=== PATIENT | male | born 1950 | race Caucasian/White ===

== ENCOUNTER → 2024-04-28 10:46 | Outpatient (REF) | payer OTHER, SELFPAY | LOC: RAD 10:46 | PROVIDERS: ATTENDING PHYSICIAN Family Medicine | DX: F03.90 Unspecified dementia, unspecified severity, without behavioral disturbance, psychotic disturbance, mood disturbance, and anxiety (principal); J44.9 Chronic obstructive pulmonary disease, unspecified; Z72.0 Tobacco use; Z00.01 Encounter for general adult medical examination with abnormal findings; R05.3 Chronic cough | CPT/HCPCS: 71046 ==

== ENCOUNTER 2024-12-04 11:49 | Emergency (ER) | payer OTHER, SELFPAY ==
[2024-12-04 11:51] VITALS: BP 108/63
[2024-12-04 12:08] VITALS: BMI 27.3
[2024-12-04 12:42] VITALS: BP 116/89
[2024-12-04 12:46] LABS: Hematocrit 46.4 % (39.0-52.0); Hemoglobin 15.8 g/dL (13.0-18.0); Mean Corp Hgb Conc. 34.1 g/dL (33.0-37.0); Mean Corpuscular Volume 89.9 fL (80.0-94.0); Nucleated Red Blood Cells % 0 % (-); Platelet Count 142 10^3/uL (130-400); Red Cell Dist. Width 13.9 % (11.5-14.5)
[2024-12-04] MEDS: TYLENOL 1000 MG PO (12:47)
[2024-12-04 12:55] LABS: Venous Blood Gas B.E. 0.8 mmol/L (-4 to +4); Venous Blood Gas O2 Sat % 84.1 %
[2024-12-04 13:00] VITALS: BP 112/83
--- NOTE | 2024-12-04 13:02 | ED.GENMED ---
History of Present Illness
General
Chief Complaint: Cough
Time Seen by Provider: 12/04/24 12:20
History of Present Illness
History of Present Illness:
74-year-old male with history of COPD presenting for cough and shortness of breath. Patient notes symptoms for the past 3 days with associated productive cough. No increased shortness of breath with exertion. Went to the doctor today, was sent to
the ER secondary to fever and hypoxia at 80%. He also notes some chest pain. Denies any lower extremity swelling. Denies any abdominal pain. He is not on any oxygen at home. He is a daily smoker. Denies additional acute medical complaints
Past History
Past History
ED Past Medical History: Other (Chronic cough)
ED Past Surgical History: Appendectomy, Bowel resection and Other (Herniorrhaphy, cataract surgery)
Social History
Tobacco: Smoker
Alcohol: None
Drug: None
Personal:
Living: with family
Employment: Employed
Family History
Family History: Hypertension; Negative Early CAD
Phy Exam
Physical Exam
Physical Exam:
General: Well-appearing, no clinical signs of dehydration, nontoxic and in no acute distress
HEENT: protecting airway
Neck: appears supple
CV: Normal heart rate, regular rhythm
Resp: Rhonchi and rales bilaterally with some expiratory wheezing. Mild increased work of breathing
Abd: Soft and non-distended, no tenderness to palpation
Extremities: No deformities, no swelling, no erythema, pulses and sensation intact
Neuro: alert, no focal neurologic deficit
: deferred
Rectal: deferred
Psych: Normal affect
Skin: Intact
Sepsis
Sepsis Screening
Sepsis Assessment: Sepsis
Sepsis Screen
Sepsis Screen: Sepsis
Date: 12/04/24
Time: 14:42
Course
Orders/Labs/Results
Orders:
Orders
12/04/24 12:10
CXR2 [CR Chest - 2 Views ] Urgent
Comment:
Reason For Exam: cough,fever
12/04/24 12:26
Electrocardiogram (*1) Urgent
Reason for Study: Other
Other Reason for Exam: sepsis
EKG- Treatment ONCE
Acetaminophen [Tylenol] 1,000 mg PO NOW STA
12/04/24 12:30
Comprehensive Metabolic Panel Urgent
12/04/24 12:35
Complete Blood Count/With Diff Urgent
Lactic Acid Q4H
Comment: CANCEL 2nd LACTIC ACID IF 1st LACTIC ACID IS LESS THAN 2
NT-proBNP Urgent
Troponin I Urgent
Comment: ADD
Blood Culture Q30M
TONG Source: Blood/Venous
Specimen Description:
12/04/24 12:36
Add On- LAB Urgent
Tests Added?: troponin
12/04/24 12:43
COVID-19 Antigen Urgent
Source: Nasal Swab
Venous Blood Gas Urgent
%Oxygen/Room Air: 21
Blood Culture Q30M
TONG Source: Blood/Venous
Specimen Description:
Influenza A+B Rapid Molecular Urgent
TONG Source: Nasal Swab
Specimen Description:
12/04/24 12:56
Ipratropium/Albuterol Sulfate [Duoneb] 3 ml INH R NOW STA
12/04/24 12:57
0.9% Sodium Chloride 1000 ml [Nss] 1,000 ml IV BOLUS
Cefepime HCl [Maxipime] 2,000 mg IV NOW STA
12/04/24 12:58
Vancomycin [Vancocin] 2,000 mg 0.9% Sodium Chloride 500 ml [Nss] 500 ml IV NOW
12/04/24 13:15
Sterile Water [Sterile Water For Injection] 10 ml .ROUTE .STK-MED ONE
Abnormal Lab Results
12/04/24 12/04/24 12/04/24
12:30 12:35 12:43
WBC 14.3 H 10^3/uL
(4.8-10.8)
MPV 11.3 H fL
(7.4-10.4)
Abs Immat Gran (auto) 0.1 H 10^3/uL
(0-0.05)
Absolute Neuts (auto) 10.5 H 10^3/uL
(1.4-6.5)
Absolute Monos (auto) 1.6 H 10^3/uL
(0.1-0.6)
Lymphocytes % 14.6 L %
(20.5-51.1)
Monocytes % 10.9 H %
(1.7-9.3)
VBG HCO3 27.1 H mmol/L
(22-27)
Sodium 131 L mmol/L
(135-145)
Chloride 97 L mmol/L
(98-107)
Glucose 114 H mg/dl
(70-99)
12/04/24 12:35
12/04/24 12:35
Vital Signs
Initial and Last Documented VS:
Initial Vital Signs
Temp Pulse Resp BP Pulse Ox
102.1 F H 129 24 108/63 88
12/04/24 11:51 12/04/24 11:51 12/04/24 11:51 12/04/24 11:51 12/04/24 11:51
Last Documented Vital Signs
Temp Pulse Resp BP Pulse Ox
99.8 F 108 20 94/80 91
12/04/24 13:59 12/04/24 14:30 12/04/24 13:00 12/04/24 14:00 12/04/24 14:15
MDM/Problems Addressed
MDM/Problems Addressed:
74-year-old male with history of COPD presenting for cough, fever, shortness of breath. Vital signs on arrival significant for fever, tachycardia, tachypnea.
Patient arrives on supplemental O2 with improvement of saturations from prior facility. Mild increased work of breathing with rhonchorous breath sounds bilaterally, wheezing. Concern for pneumonia and possible sepsis, meeting SIRS criteria. Plan
for laboratory analysis, lactic acid, blood cultures, chest x-ray imaging, viral swabs. Will start patient on DuoNebs and IV fluids. Will also assembler flexible leads Tylenol for fever.
13:10 - Chest x-ray is consistent with multifocal pneumonia. Patient with leukocytosis. Lactic acid within normal limits and blood pressure within normal limits without concern for severe sepsis or septic shock. Starting broad-spectrum
antibiotics. Plan for admission
*Pulse Oximetry
SaO2: 93
Nasal Cannula flow liters per minute: 2
Oxygen Mode of Delivery: Room air
Patient hypoxic: yes
*EKG
Interpreted by ED Provider?: Yes
EKG Intrepretation Date: 12/04/24
EKG Intrepretation Time: 13:11
Interpretation: normal
Comparison EKG: no changes (09/20/21)
Heart Rate: 118
Rate: tachycardiac
Rhythm: sinus
[place]: normal axis
Interval: normal interval
QRS Pattern: normal QRS
Ischemia: no ischemia
*Critical Care Note
Total Time (30-74mins, 75-104mins- exclusive of procedures): Not Applicable
ED Attending Note
-
Portions of this chart may have been created with voice recognition software.� Occasional wrong word or��sound alike� substitutions may have occurred due to the inherent limitations of voice recognition software.
Discharge Plan
Departure
Patient Disposition: Admit
Date of Disposition: 12/04/24
Time of Disposition: 13:53
Presentation/result/management discussed w/ accepting MD/DO: Hospitalist
Patient with high blood pressure during this ER visit?: No
Condition: Fair
Discharge Problem:
Multifocal pneumonia, Sepsis
Prescriptions:
No Action
albuterol sulfate [Ventolin HFA] 1 PUFF HFA aerosol inhaler
2 puff inhalation R Q4HPRN PRN (Reason: WHEEZING)
Referrals:
Trung Duong, DO [Family Provider, Family Practice]
Interventions
Interventions:
*Risk Screen - Suicide Last Done: 12/04/24 11:51
*General Assessment Last Done: 12/04/24 11:51
*Neglect/Abuse Screening Last Done: 12/04/24 13:35
*ED- Fall Risk Assessment Last Done: 12/04/24 12:09
*ED COVID-19 Vaccine History Last Done: 12/04/24 12:09
ED- Pulmonary Assessment Last Done: 12/04/24 13:32
Discharge Date and Time
Print Language: CITIZEN OF [place]
[2024-12-04 13:06] LABS: COVID-19 Antigen Negative (Negative)
[2024-12-04 13:11] LABS: Troponin I 0.014 ng/ml
[2024-12-04] MEDS: NSS 1000 IV (13:11)
[2024-12-04 13:22] LABS: ALT (SGPT) 14 U/L (0-50); AST (SGOT) 23 U/L (17-59); Albumin 4.7 g/dl (3.5-5.0); Alkaline Phosphatase 73 U/L (38-126); Blood Urea Nitrogen 14 mg/dl (9-20); Calcium 8.9 mg/dl (8.4-10.2); Carbon Dioxide 25 mmol/L (22-30); Chloride 97 mmol/L (98-107); Estimated Creatinine Clearance 94 ml/min; Glucose 114 mg/dl (70-99); Potassium 4.2 mmol/L (3.5-5.1); Sodium 131 mmol/L (135-145); Total Protein 7.7 g/dl (6.3-8.2); eGFR > 60.00
[2024-12-04] MEDS: DUONEB 3 ML INH (13:22)
[2024-12-04] MEDS: MAXIPIME 2000 MG IV (13:23)
[2024-12-04] MEDS: VANCOCIN 540 MG IV (13:45)
[2024-12-04 14:00] VITALS: BP 94/80
--- NOTE | 2024-12-04 14:55 | HPS.HSE ---
Addendum entered and electronically signed by Colby Card MD 12/05/24 11:37:
New H & P and new admission orders are placed following readmissions on the same day after AMA.
An hr or so ago he left AMA but brought home back
Clinically stable
Addendum entered and electronically signed by Colby Card MD 12/04/24 19:05:
An hr or so ago he left AMA but brought adrienne back
Clinically and orders are the same
- cont. the admission orders
Addendum entered and electronically signed by Colby Card MD 12/04/24 16:10:
Due to element of COPD flare and acute hypoxemic RI
- to start PO Prednisone short course and taper every 48hrs
- Home O2 eval before DC
Original Note:
Family Physician
-
Family Physician: Trung Duong
Chief Complaint
-
cough, fever, shortness of breath
History of Present Illness
HPI
74M partial Kyr[place] speaker Current smoker, HX Dementia COPD/Emphysema seen at ER
-for cough, fever, shortness of breath for the past 3 days with associated productive cough.
- No increased shortness of breath with exertion.
- Went to the doctor today, was sent to the ER secondary to fever and hypoxia at 80%.
- some chest pain.
- not on any oxygen at home.
ROS
Denies any lower extremity swelling.
Denies any abdominal pain. He is a daily smoker.
Medical History
Past Medical History
Past Medical History: Reports COPD (chronic cough, XR suggest mild / moderate bilateral upper lobe centrilobular emphysema. ) and Other (Nicotine use disorder - smoke daily )
Past Surgical History: Reports Appendectomy, Bowel Resection and Other (Herniorrhaphy, cataract surgery))
Social History
Tobacco: Smoker
Alcohol: None
Personal:
Living: With Family
Family History
Family History: Not pertinent
Allergies / Home Medications
Allergies reflects when Allergies were last updated in [facility].
Home Medications with original date entered in [facility]
Allergy/Medication List:
Allergies
Allergy/AdvReac Type Severity Reaction Status Date / Time
No Known Allergies Allergy Verified 12/04/24 11:51
Home Medications
albuterol sulfate 90 mcg/actuation aerosol inhaler (Ventolin HFA) 2 puff inhalation R Q4HPRN PRN WHEEZING 12/04/24
Review of Systems
-
Constitutional: Reports No Symptoms
EENT: Reports No Symptoms
Respiratory: Reports See HPI
Cardiac: Reports No Symptoms
Abdomen/GI: Reports No Symptoms
: Reports No Symptoms
Musculoskeletal: Reports No Symptoms
Skin: Reports No Symptoms
Neurological: Reports No Symptoms
Endocrine: Reports No Symptoms
Hematologic/Lymphatic: Reports No Symptoms
Psych: Reports No Symptoms
Physical Exam
Vital Signs
Vital Signs
Temp Pulse Resp BP Pulse Ox
99.8 F 108 20 94/80 91
12/04/24 13:59 12/04/24 14:30 12/04/24 13:00 12/04/24 14:00 12/04/24 14:15
Physical Exam
General: Well Developed, Well Nourished and No Apparent Distress
HEENT: NormoCephalic, Moist mucous membranes and Atraumatic
Respiratory: Wheezes (expiratory wheezing both lungs ), Rales (both lung ) and Rhonchi (both lungs )
Cardiac: S1/S2, Regular Rhythm and Tachycardia; No Murmur or Rub
GI: Soft, Non Tender, Non Distended and Normal Bowel Sounds; No Organomegaly
Rectal: Deferred by Provider
Musculoskeletal: No Clubbing, No Cyanosis and No Edema
Skin: No Rash
Neuro: Nonfocal/grossly intact
Laboratory Results
-
12/04/24 12:35
12/04/24 12:35
Laboratory Results
Lactic Acid Cancelled 12/04/24 16:30
Total Bilirubin Cancelled 12/04/24 12:35
AST Cancelled 12/04/24 12:35
ALT Cancelled 12/04/24 12:35
Alkaline Phosphatase Cancelled 12/04/24 12:35
Troponin I 0.014 ng/ml 12/04/24 12:35
Data Reviewed
-
Diagnostic Radiology: Report Reviewed by me
Lab Data: Labs Reviewed by me
Impression/Plan
-
Relevant data
WCC 14.3
Na 131
Cr 0.7 eGFR > 60
LA 1.2
TPN 0.014
proBNP 221
BCx sent
CXR
1. Large amount of ground-glass opacity in the basilar segments of the lower lobes of both lungs, right middle lobe, and lingula which has markedly increased since 04/28/2024. Diagnostic possibilities are (1) acute bilateral infectious pneumonia
or (2) progressive combined emphysema and interstitial pulmonary fibrosis.
2. Mild to moderate bilateral upper lobe centrilobular emphysema.
NO PRIOR hospitalist admission:
ASSESSMENT & PLAN
Pending Rx reconciliation
Sepsis ( HR >90. WCC > 10) due to PNA
Multifocal PNA - presumed CAP
Asso. acute Hypoxia requiring NC 2 L O2
XR also suggest mild / moderate bilateral upper lobe centrilobular emphysema.
- BCx sent
- First dose of IV Vanco and IV CFP at ER
- check MRSA screen till then hold further IV vancomycin
- cont IV CFP
- Goal Pox > 93 % - titrate NC O2
Associated Bronchitis and bronchospasm
XR also suggest mild / moderate bilateral upper lobe centrilobular emphysema.
- DuoNeb qid and PRN
- Hold off steroids for now
HX partial Kyrgyz speaker
HX Dementia with loss of secondary Kyr[place]z language proficiency
- calm and cooperative now
- at risk for irritation and agitation
Nicotine use disorder
- will start Nicotine patch to prevent irritation and agitation
DVT Px: LMWH
Full code
IP MS
--- NOTE | 2024-12-04 16:21 | PHANOTE ---
MED REC NOTE- WAITING FOR TO COME BACK TO ROOM, PATIENT VERY CONFUSED AT THIS TIME
== END 2024-12-04 17:23 | disposition still patient (30) ==
LOC: EMR 11:49
PROVIDERS: ATTENDING PHYSICIAN Internal Medicine; EMERGENCY PHYSICIAN Student in an Organized Health Care Education/Training Program; FAMILY PHYSICIAN Family Medicine
DX: A41.9 Sepsis, unspecified organism (principal); J18.9 Pneumonia, unspecified organism; J44.0 Chronic obstructive pulmonary disease with (acute) lower respiratory infection; F17.200 Nicotine dependence, unspecified, uncomplicated; F03.90 Unspecified dementia, unspecified severity, without behavioral disturbance, psychotic disturbance, mood disturbance, and anxiety; Z53.29 Procedure and treatment not carried out because of patient's decision for other reasons
CPT/HCPCS: 99284; 96374; 96375; 94640; 96361; 71046; 80053; 81003; 81015; 82805; 83605; 83880; 84484; 85025; 85027; 87040; 87070; 87502; 87811; 93005

== ENCOUNTER 2024-12-04 22:59 | Inpatient (IN) | payer OTHER, SELFPAY ==
[2024-12-04] VITALS (7 sets, daily range): BP systolic 93–136; BP diastolic 56–82; BMI 27.0
--- NOTE | 2024-12-04 18:55 | ED.GENMED ---
History of Present Illness
General
Chief Complaint: Breathing Problem
Source: patient and family
Time Seen by Provider: 12/04/24 18:53
History of Present Illness
History of Present Illness:
Note:
CHIEF COMPLAINT(S)
Cough, fever, and shortness of breath.
HISTORY OF PRESENT ILLNESS
The patient, male, presents with a history of cough and fever and was diagnosed with pneumonia earlier in the day. He was admitted to the hospital but subsequently left to smoke. He has since returned for admission. Upon re-evaluation, the patient
was found to be wheezing bilaterally and exhibited ronchi bilaterally and hypoxia, requiring four liters of supplemental oxygen to maintain an oxygen saturation of 94%. The patient has a regular yet tachycardic heart rate. There is a significant
history of long-standing smoking.
ADDITIONAL HISTORY OBTAINED FROM SOURCES OTHER THAN THE PATIENT
According to a family member at the bedside, the patient did not smoke much today.
SOCIAL HISTORY
The patient has a significant long-standing history of smoking. The family mentions they have considered nicotine replacement therapy such as patches or gum.
PHYSICAL EXAM
General: Alert, no acute distress.
Skin: Warm, dry.
Head: Normocephalic, atraumatic.
Neck: Supple, trachea midline.
Ears, Nose, Mouth, and Throat: Oral mucosa moist.
Cardiovascular: Regular and tachycardic.
Respiratory: Wheezing and ronchi bilaterally; oxygen saturation at 94% on four liters of supplemental oxygen.
Gastrointestinal: Abdomen nondistended.
Back: Normal range of motion, normal alignment.
Musculoskeletal: Normal range of motion, normal strength.
Neurological: Alert and oriented to person, place, time, and situation, no focal neurological deficit observed.
Psychiatric: Cooperative, appropriate mood & affect.
PROBLEM LIST
Acute:
- Pneumonia
- Hypoxia
- Smoking history contributing to respiratory distress
PLAN
1. Admit to hospital for continued treatment of pneumonia.
2. Initiate antibiotics as per hospital protocol for pneumonia management.
3. Administer breathing treatment to address wheezing.
4. Continue supplemental oxygen to maintain saturations above 94%.
5. Consider nicotine replacement therapy with a patch to aid in smoking cessation.
DIFFERENTIAL DIAGNOSIS
The Differential Diagnosis includes, in no particular order and is not limited to:
1. Bacterial pneumonia
2. Acute exacerbation of chronic obstructive pulmonary disease (COPD)
3. Viral upper respiratory infection
4. Asthma exacerbation
5. Heart failure with pulmonary edema
6. Pulmonary embolism
7. Lung cancer
8. Tuberculosis
9. Interstitial lung disease
10. Acute bronchitis
Disposition:
SUMMARY OF ENCOUNTER
The patient presented to the emergency department with a cough, fever, and shortness of breath, later diagnosed with pneumonia. Initially admitted, the patient left to smoke but returned for further evaluation and management. Upon re-evaluation, the
patient exhibited bilateral wheezing, ronchi, and hypoxia requiring supplemental oxygen to maintain oxygen saturation. A significant smoking history was noted. Antibiotics and nicotine patches were provided, alongside breathing treatments.
DISPOSITION
Admit
ASSESSMENT
The patient presents with pneumonia, likely exacerbated by a significant smoking history, leading to respiratory distress and hypoxia.
EMERGENCY TREATMENTS ADMINISTERED
The patient received antibiotics as per the hospital protocol and a breathing treatment with DuoNeb (albuterol and ipratropium bromide). Nicotine patches were also provided to aid in smoking cessation.
PLAN
1. Continue hospitalization for pneumonia management.
2. Continue prescribed antibiotics.
3. Administer breathing treatments and maintain supplemental oxygen to ensure oxygen saturation remains above 94%.
4. Encourage smoking cessation with the aid of nicotine replacement therapy.
5. Consider further pulmonology consultation if needed.
INDEPENDENT REVIEW OF LABS AND INTERPRETATION OF TESTS
My independent review of CBC indicates leukocytosis with white blood cell count at 14,000, and lactic acid levels were normal at 1.2.
MEDICATION RECONCILIATION
1. Administered antibiotics during the emergency department visit.
2. Provided nicotine patch for smoking cessation.
3. Administered DuoNeb for respiratory relief.
MEDICAL DECISION MAKING
- Complexity of Data Reviewed: Chronic conditions affecting care include a significant smoking history. Differential diagnosis includes bacterial pneumonia, acute exacerbation of COPD, viral upper respiratory infection, asthma exacerbation, heart
failure with pulmonary edema, pulmonary embolism, lung cancer, tuberculosis, interstitial lung disease, and acute bronchitis.
- Data:
Category 1
Clinical information was obtained from an independent historian, as a family member provided additional information on the patient�s smoking habits today.
Category 3
Discussion of management with the hospitalist ensured continuity of care and appropriate orders for antibiotics and nicotine replacement therapy remained in place.
- Risk:
Prescription medication was provided, and therapy required monitoring. Decisions regarding hospitalization were made due to the risk of complications from pneumonia and the patient�s chronic smoking history.
DIAGNOSIS
Pneumonia, unspecified organism (ICD-10: J18.9)
Nicotine dependence, cigarettes, uncomplicated (ICD-10: F17.210)
Past History
Past History
ED Past Medical History: Other (Chronic cough)
ED Past Surgical History: Appendectomy, Bowel resection and Other (Herniorrhaphy, cataract surgery)
Social History
Tobacco: Smoker
Alcohol: None
Drug: None
Personal:
Living: with family
Employment: Employed
Family History
Family History: Hypertension; Negative Early CAD
Phy Exam
Physical Exam
Physical Exam:
.
Scores
Heart Failure Risk
Heart Failure Risk Score: Not Applicable
Sepsis
Sepsis Screening
Sepsis Assessment: Sepsis
Sepsis Screen
Sepsis Screen: Sepsis
Date: 12/04/24
Time: 23:52
Course
Orders/Labs/Results
Orders:
Orders
12/04/24 19:08
Admit/Transfer Patient As Directed
Co-Sign Provider:
Level of Care: Inpatient admission
Assign to:: Medical/Surgical
Physician / Group: [email or web address]
Diagnosis: PNA, COPD flare, sepsis , hypoxia
Reason for Hospitalization: PNA, COPD flare, sepsis , hypoxia
Expected length of stay greater than two midnights?: Yes
ELOS- Estimated Length of Stay in days: 3
I certify the patient meets the requirements for IP care: Yes
12/04/24 19:10
Code Status As Directed
Resuscitation Status: Full Code
12/04/24 19:21
Ipratropium/Albuterol Sulfate [Duoneb] 3 ml INH R NOW STA
12/04/24 19:32
Acetaminophen [Tylenol] 1,000 mg PO NOW STA
12/04/24 23:04
Blood Culture Q30M
TONG Source: Blood/Venous
Specimen Description:
Comment: IF NOT OBTAINED IN ED
Cefepime HCl [Maxipime] 2,000 mg IV Q8H
Ipratropium/Albuterol Sulfate [Duoneb] 3 ml INH R Q4HPRN PRN
Ipratropium/Albuterol Sulfate [Duoneb] 3 ml INH R QID
12/04/24 23:04
Urinalysis Reflex To Culture Urgent
Date Specimen was Collected: 12/05/24
Time Specimen was Collected: 17:21
Activity As Directed
Activity Level: With Assistance
Vital Signs As Directed
Frequency: Per unit guidelines
Weight As Directed
Frequency: Daily
DX Deep Vein Thrombosis Video Routine
12/04/24 23:34
Blood Culture Q30M
TONG Source: Blood/Venous
Specimen Description:
Comment: IF NOT OBTAINED IN ED
12/05/24 05:32
Complete Blood Count/No Diff IN AM
Comprehensive Metabolic Panel IN AM
12/05/24 Breakfast
Regular
At Your Request: Limited Participation
12/05/24 08:00
Nicotine [Nicoderm Transdermal] 14 mg TRANSDERM DAILY
Prednisone [Deltasone] 40 mg PO DAILY
12/05/24 18:00
Enoxaparin Sodium [Lovenox] 40 mg SC QPM
12/04/24 18:59
12/04/24 18:59
Vital Signs
Initial and Last Documented VS:
Initial Vital Signs
Temp Pulse Resp BP Pulse Ox
101.3 F H 132 24 136/73 83
12/04/24 18:47 12/04/24 18:47 12/04/24 18:47 12/04/24 18:47 12/04/24 18:47
Last Documented Vital Signs
Temp Pulse Resp BP Pulse Ox
98.5 F 90 18 103/55 99
12/05/24 23:14 12/05/24 23:14 12/05/24 23:14 12/05/24 23:14 12/05/24 23:14
*Pulse Oximetry
SaO2: 83
Oxygen Mode of Delivery: Room air
Patient hypoxic: yes
*Critical Care Note
Total Time (30-74mins, 75-104mins- exclusive of procedures): 30 minutes
ED Attending Note
-
Portions of this chart may have been created with voice recognition software.� Occasional wrong word or��sound alike� substitutions may have occurred due to the inherent limitations of voice recognition software.
Discharge Plan
Departure
Patient Disposition: Admit
Date of Disposition: 12/04/24
Time of Disposition: 19:18
Admit to: Telemetry
Presentation/result/management discussed w/ accepting MD/DO: Hospitalist
Discharge Problem:
Sepsis, Multifocal pneumonia
Interventions
Interventions:
*Risk Screen - Suicide Last Done: 12/04/24 23:16
*General Assessment Last Done: 12/04/24 18:47
*Neglect/Abuse Screening Last Done: 12/04/24 19:35
*ED- Fall Risk Assessment Last Done: 12/04/24 19:50
*Nursing Disposition Last Done: 12/04/24 22:18
ED- Cardiac Assessment Last Done: 12/04/24 19:36
ED- Pulmonary Assessment Last Done: 12/04/24 19:36
Discharge Date and Time
Discharge Date/Time: 12/04/24 22:18
--- NOTE | 2024-12-04 19:14 | HPS.HSE ---
Family Physician
-
Family Physician: Jg Hollis
Chief Complaint
-
cough, fever, shortness of breath
History of Present Illness
74M HX dementia Current smoker, HX COPD/Emphysema seen at ER
-for cough, fever, shortness of breath for the past 3 days with associated productive cough.
- No increased shortness of breath with exertion.
- Went to the doctor today, was sent to the ER secondary to fever and hypoxia at 80%.
- some chest pain.
- not on any oxygen at home.
ROS
Denies any lower extremity swelling.
Denies any abdominal pain. He is a daily smoker.
Chest x-ray is consistent with multifocal pneumonia
leukocytosis. Lactic acid within normal limits
Medical History
Past Medical History
Past Medical History: Reports COPD (chronic cough, XR suggest mild / moderate bilateral upper lobe centrilobular emphysema. ) and Other (Nicotine use disorder - smoke daily )
Past Surgical History: Reports Appendectomy, Bowel Resection and Other (Herniorrhaphy, cataract surgery))
Social History
Tobacco: Smoker
Alcohol: None
Personal:
Living: With Family
Family History
Family History: Not pertinent
Allergies / Home Medications
Allergies reflects when Allergies were last updated in [facility].
Home Medications with original date entered in [facility]
Allergy/Medication List:
Allergies
Allergy/AdvReac Type Severity Reaction Status Date / Time
No Known Allergies Allergy Verified 12/04/24 11:51
Home Medications
albuterol sulfate 90 mcg/actuation aerosol inhaler (Ventolin HFA) 2 puff inhalation R Q4HPRN PRN WHEEZING 12/04/24
Review of Systems
-
Constitutional: Reports No Symptoms
EENT: Reports No Symptoms
Respiratory: Reports See HPI
Cardiac: Reports No Symptoms
Abdomen/GI: Reports No Symptoms
: Reports No Symptoms
Musculoskeletal: Reports No Symptoms
Skin: Reports No Symptoms
Neurological: Reports No Symptoms
Endocrine: Reports No Symptoms
Hematologic/Lymphatic: Reports No Symptoms
Psych: Reports No Symptoms
Physical Exam
Vital Signs
Vital Signs
Temp Pulse Resp BP Pulse Ox
101.3 F H 132 24 136/73 83
12/04/24 18:47 12/04/24 18:47 12/04/24 18:47 12/04/24 18:47 12/04/24 18:55
Physical Exam
General: Well Developed, Well Nourished and No Apparent Distress
HEENT: NormoCephalic, Moist mucous membranes and Atraumatic
Respiratory: Wheezes (expiratory wheezing both lungs ), Rales (both lung ) and Rhonchi (both lungs )
Cardiac: S1/S2, Regular Rhythm and Tachycardia; No Murmur or Rub
GI: Soft, Non Tender, Non Distended and Normal Bowel Sounds; No Organomegaly
Rectal: Deferred by Provider
Musculoskeletal: No Clubbing, No Cyanosis and No Edema
Skin: No Rash
Neuro: Nonfocal/grossly intact
Laboratory Results
-
Relevant data
WCC 14.3
Na 131
Cr 0.7 eGFR > 60
LA 1.2
TPN 0.014
proBNP 221
BCx sent
Data Reviewed
-
Diagnostic Radiology: Report Reviewed by me
Lab Data: Labs Reviewed by me
Impression/Plan
-
Relevant VS
Vital Signs
Temp Pulse Resp BP Pulse Ox
101.3 F H 132 24 136/73 83
12/04/24 18:47 12/04/24 18:47 12/04/24 18:47 12/04/24 18:47 12/04/24 18:55
Relevant data
WCC 14.3
Na 131
Cr 0.7 eGFR > 60
LA 1.2
TPN 0.014
proBNP 221
BCx sent
CXR
1. Large amount of ground-glass opacity in the basilar segments of the lower lobes of both lungs, right middle lobe, and lingula which has markedly increased since 04/28/2024. Diagnostic possibilities are (1) acute bilateral infectious pneumonia
or (2) progressive combined emphysema and interstitial pulmonary fibrosis.
2. Mild to moderate bilateral upper lobe centrilobular emphysema.
NO PRIOR hospitalist admission:
ASSESSMENT & PLAN
Sepsis ( HR >90. WCC > 10) due to PNA
Multifocal PNA - presumed CAP
Asso. acute Hypoxia requiring NC 2 L O2
XR also suggest mild / moderate bilateral upper lobe centrilobular emphysema.
- BCx sent
- First dose of IV Vanco and IV CFP at ER
- check MRSA screen till then hold further IV vancomycin
- cont IV CFP 2gm q8h
- Goal Pox > 93 % - titrate NC O2
Associated Bronchitis and bronchospasm
XR also suggest mild / moderate bilateral upper lobe centrilobular emphysema.
- DuoNeb qid and PRN
- Due to element of COPD flare and acute hypoxemic RI
- to start PO Prednisone short course and taper every 48hrs
- Home O2 eval before DC
HX partial French speaker
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
- calm and cooperative now
- at risk for irritation and agitation
Nicotine use disorder
- will start Nicotine patch to prevent irritation and agitation
DVT Px: LMWH
Full code
IP MS
[2024-12-04] MEDS: TYLENOL 1000 MG PO (19:36)
[2024-12-04] MEDS: DUONEB 3 ML INH ×2 (19:36→23:54)
[2024-12-05] MEDS: MAXIPIME 2000 MG IV ×4 (00:20→23:09)
[2024-12-05] MEDS: NICODERM TRANSDERMAL TRANSDERM (00:21)
[2024-12-05] MEDS: LR 500 IV (00:21)
[2024-12-05] MEDS: STERILE WATER FOR INJECTION 10 ML IV ×4 (00:27→23:09)
[2024-12-05] MEDS: NICODERM TRANSDERMAL 14 MG TRANSDERM ×2 (00:38→08:58)
[2024-12-05 01:30] VITALS: BP 97/64
[2024-12-05 05:19] VITALS: BP 93/60
[2024-12-05 05:28] VITALS: BP 98/65
[2024-12-05 06:00] VITALS: BMI 26.8
[2024-12-05] MEDS: LR 1000 IV (06:08)
--- NOTE | 2024-12-05 06:27 | W.PN.UPDATE ---
Update Note
Progress Note Update
pt with softer bps (90s/50s). asymptomatic. will add one bag ivf.
[2024-12-05 06:36] LABS: Hematocrit 39.6 % (39.0-52.0); Hemoglobin 13.5 g/dL (13.0-18.0); Mean Corp Hgb Conc. 34.1 g/dL (33.0-37.0); Mean Corpuscular Volume 90.6 fL (80.0-94.0); Platelet Count 130 10^3/uL (130-400); Red Cell Dist. Width 13.9 % (11.5-14.5)
[2024-12-05 06:50] LABS: ALT (SGPT) 11 U/L (0-50); AST (SGOT) 19 U/L (17-59); Albumin 3.6 g/dl (3.5-5.0); Alkaline Phosphatase 62 U/L (38-126); Blood Urea Nitrogen 13 mg/dl (9-20); Calcium 8.4 mg/dl (8.4-10.2); Carbon Dioxide 24 mmol/L (22-30); Chloride 105 mmol/L (98-107); Estimated Creatinine Clearance 110 ml/min; Glucose 99 mg/dl (70-99); Potassium 3.8 mmol/L (3.5-5.1); Sodium 136 mmol/L (135-145); Total Protein 6.1 g/dl (6.3-8.2); eGFR > 60.00
[2024-12-05 08:00] VITALS: BP 99/59
[2024-12-05] MEDS: DUONEB 3 ML INH ×4 (08:14→20:13)
[2024-12-05] MEDS: DELTASONE 40 MG PO (08:58)
--- NOTE | 2024-12-05 12:57 | CM ---
Initial assessment completed with with patient and S-I-L in room. Patient and live in a 2 story condo with B/B on 2nd and 1/2 bath on 1st, 5 steps to enter. 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
Patient does drive. No DME or in-home services. No HC-POA. PCP is Dr. Jg Hollis and Pharmacy is [facility] on [address] Discharge POC: TBD. Home with no needs vs HH RN.
--- NOTE | 2024-12-05 14:02 | W.PN.HOSP.TC ---
Today's Communication/Plan
-
Assessment / Plan
Assessment / Plan
General: No Apparent Distress, Comfortable and Conversant
HEENT: NormoCephalic, Moist mucous membranes, Atraumatic
Respiratory: Mild diffuse expiratory wheezing, Non Labored Respirations
Cardiac: S1/S2 and Regular Rhythm; No Rub or Gallop
GI: Soft, Non Tender, Non Distended and Normal Bowel Sounds
Musculoskeletal: No Edema, no deformity
Skin: Warm and dry
: NO Kumar
Neuro: Awake, Alert, Nonfocal/grossly intact
Psych: Calm and cooperative
Mr. Rivera is a 74-year-old [place] speaking male with a medical history of dementia, COPD with emphysema (not on home oxygen) and is a current smoker who presented with productive cough, shortness of breath, and fevers. He left yesterday AGAINST
MEDICAL ADVICE soon after and returned soon after for reevaluation on admission. He has a leukocytosis and remains intermittently febrile. He has been borderline hypotensive since presentation. Chest x-ray shows bilateral pneumonia. He has been
started on antibiotics with cefepime, IV fluids, and prednisone. He is requiring 3 L of supplemental oxygen. He has been admitted for further evaluation and management of sepsis secondary to pulmonary infection with COPD exacerbation.
Sepsis secondary to pneumonia:
- Given a dose of vancomycin and cefepime in the ED, continue antibiotics with cefepime, follow-up MRSA swab
- Continue resuscitative fluids currently with LR at 100 cc/h
- Follow-up cultures
- Supplemental oxygen as needed
COPD with acute exacerbation:
- With acute hypoxic respiratory failure, not on home oxygen, desaturated to the low 80s on room air, saturating appropriately on 3 L, titrate as able and assess for home oxygen needs prior to discharge
- Continue scheduled nebulizers with additional as needed
- Has been on 40 mg p.o. daily
- Encourage smoking cessation, nicotine patch provided
DVT prophylaxis: Lovenox
CODE STATUS: Full code
Total time spent on today's encounter was 35 minutes
Anticipated Discharge: 24 - 48 hours
Subjective/Interval History
-
Date of Service: December 05, 2024
Patient was seen and examined at bedside this morning. His was also present. He is breathing comfortably currently on 3 L via nasal cannula.
Objective Data
-
Labs:
Laboratory Results
12/05/24
05:32
WBC 13.2 H
Hgb 13.5
Hct 39.6
Plt Count 130
Sodium 136
Potassium 3.8
Chloride 105
Carbon Dioxide 24
BUN 13
Creatinine 0.6 L
Glucose 99
Calcium 8.4
Total Bilirubin 0.8
AST 19
ALT 11
Alkaline Phosphatase 62
Vital Signs:
Vital Signs
Temp Pulse Resp BP Pulse Ox
98.4 F 73 16 99/59 95
12/05/24 08:00 12/05/24 11:20 12/05/24 11:20 12/05/24 08:00 12/05/24 11:20
Review of Systems
-
History Source: Patient
All other systems: Reviewed and negative
Physical Exam
-
General: No Apparent Distress
[2024-12-05 16:00] VITALS: BP 93/56
[2024-12-05] MEDS: LOVENOX 40 MG SC (17:18)
[2024-12-05 17:52] LABS: Urine Character Clear (Clear)
[2024-12-05 18:05] LABS: Urine Squamous Cell 0-2 /LPF (Few)
[2024-12-05 18:06] LABS: Urine Red Blood Cell 0-2 /HPF (0-2); Urine White Cell 0-2 /HPF (0-5)
[2024-12-05] MEDS: REMOVE NICOTINE PATCH 1 PATCH REMOVE (21:07)
[2024-12-05 23:14] VITALS: BP 103/55
[2024-12-06 05:51] VITALS: BMI 27.2
[2024-12-06 06:38] LABS: Hematocrit 37.6 % (39.0-52.0); Hemoglobin 12.6 g/dL (13.0-18.0); Mean Corp Hgb Conc. 33.5 g/dL (33.0-37.0); Mean Corpuscular Volume 91.3 fL (80.0-94.0); Nucleated Red Blood Cells % 0 % (-); Platelet Count 130 10^3/uL (130-400); Red Cell Dist. Width 13.6 % (11.5-14.5)
[2024-12-06 06:47] LABS: Blood Urea Nitrogen 27 mg/dl (9-20); Calcium 8.5 mg/dl (8.4-10.2); Carbon Dioxide 27 mmol/L (22-30); Chloride 107 mmol/L (98-107); Estimated Creatinine Clearance 110 ml/min; Glucose 113 mg/dl (70-99); Potassium 3.3 mmol/L (3.5-5.1); Sodium 138 mmol/L (135-145); eGFR > 60.00
[2024-12-06 07:00] VITALS: BP 117/66
--- NOTE | 2024-12-06 07:43 | W.PN.HOSP.TC ---
Today's Communication/Plan
-
Continue to wean oxygen.
Pulse ox on exertion in am.
PT consult.
Assessment / Plan
Assessment / Plan
Impression:
Patient is a 74-year-old French speaking male with a medical history of dementia, COPD with emphysema (not on home oxygen) and is a current smoker who presented with productive cough, shortness of breath, and fevers. He left yesterday AGAINST
MEDICAL ADVICE and returned soon after for reevaluation on admission. He has a leukocytosis and remains intermittently febrile. He has been borderline hypotensive since presentation. Chest x-ray shows bilateral pneumonia. He has been started on
antibiotics with cefepime, IV fluids, and prednisone. He is requiring 3 L of supplemental oxygen. He has been admitted for further evaluation and management of sepsis secondary to pulmonary infection with COPD exacerbation.
Assessment/plan:
Severe sepsis with acute organ dysfunction secondary to pneumonia:
Acute organ dysfunction in form of acute respiratory failure
- Chest x-ray on admission shows:
1. Large amount of ground-glass opacity in the basilar segments of the lower lobes of both lungs, right middle lobe, and lingula which has markedly increased since 04/28/2024. Diagnostic possibilities are (1) acute bilateral infectious pneumonia
or (2) progressive combined emphysema and interstitial pulmonary fibrosis.
2. Mild to moderate bilateral upper lobe centrilobular emphysema
Given a dose of vancomycin and cefepime in the ED, continue antibiotics with cefepime, negative MRSA swab
Negative both Streptococcus pneumoniae antigen and Legionella antigen
Negative blood culture
Negative influenza and COVID
Acute respiratory failure secondary to pneumonia.
Continue oxygen with weaning protocol.
Consider sending home with oxygen
. Pulse ox on exertion in am.
COPD with acute exacerbation:
- With acute hypoxic respiratory failure, not on home oxygen, desaturated to the low 80s on room air, saturating appropriately on 3 L, titrate as able and assess for home oxygen needs prior to discharge
- Continue scheduled nebulizers with additional as needed
- Has been on 40 mg p.o. daily
- Encourage smoking cessation, nicotine patch provided.
Currently smoker
Continue nicotine patches.
Hypokalemia.
Will replace and continue to monitor.
CODE STATUS: Full code
DVT prophylaxis: Lovenox
Diet: Regular diet
Family communication: Discussed with at bedside.
Total time spent on today's encounter was 65 minutes which included time spent in counseling the patient/family regarding diagnosis and treatment plan as listed above, goals of care, and symptom management. Case was discussed with nursing staff,
specialists, and care coordinators/case management. All labs and imaging personally reviewed by me. Remainder the time spent in detailed review of previous records, lab data, imaging, and other medical provider documentation.
Anticipated Discharge: Within 24 hours
Subjective/Interval History
-
Date of Service: December 06, 2024
Patient seen and examined at bedside, denies any chest pain , patient still having wheezing but overall shortness of breath Improved, no abdominal pain, no nausea, no vomiting, no diarrhea or constipation.
Discussed with at bedside.
Objective Data
-
Labs:
Laboratory Results
12/06/24
05:35
WBC 10.3
Hgb 12.6 L
Hct 37.6 L
Plt Count 130
Sodium 138
Potassium 3.3 L
Chloride 107
Carbon Dioxide 27
BUN 27 H
Creatinine 0.6 L
Glucose 113 H
Calcium 8.5
Vital Signs:
Vital Signs
Temp Pulse Resp BP Pulse Ox
98.5 F 90 18 103/55 95
12/05/24 23:14 12/05/24 23:14 12/05/24 23:14 12/05/24 23:14 12/06/24 02:19
I&O
12/05/24 12/06/24 12/07/24
06:59 06:59 06:59
Intake Total 980 / 980
Balance 980 / 980
Physical Exam
-
General: Well Developed, Well Nourished, No Apparent Distress and Comfortable
HEENT: Normocephalic, Atraumatic, Moist Mucous Membranes, No Ptosis, PERRLA and Nose Appears Normal
Respiratory: Wheezes, Rales, Rhonchi, Crackles and Non Labored Respirations
Cardiac: Regular Rhythm and S1/S2
Breast: Deferred by me
GI: Soft, Nontender, Nondistended and Normal Bowel Sounds
Genito-urinary: No Costovertebral Tender
Musculoskeletal: No Clubbing, No Cyanosis and No Edema
Skin: Warm
Neuro: Awake, Alert, Oriented, AO x 3 and No Motor Deficits
Psych: Calm
Data Reviewed
-
Diagnostic Radiology: Image personally visualized and interpreted and Report Reviewed by me
CT Scan: Image personally visualized and interpreted and Report Reviewed by me
Ultrasound: Image personally visualized and interpreted and Report Reviewed by me
MRI: Image personally visualized and interpreted and Report Reviewed by me
Medical Tests (Nuc Med, Echo etc): Image personally visualized and interpreted and Report Reviewed by me
Labs: Labs Reviewed by me
Old Records: Reviewed
[2024-12-06] MEDS: DUONEB 3 ML INH ×4 (07:54→20:00)
[2024-12-06] MEDS: NICODERM TRANSDERMAL 14 MG TRANSDERM (08:24)
[2024-12-06] MEDS: STERILE WATER FOR INJECTION 10 ML IV ×3 (08:24→22:23)
[2024-12-06] MEDS: DELTASONE 40 MG PO (08:24)
[2024-12-06] MEDS: MAXIPIME 2000 MG IV ×3 (08:24→22:23)
[2024-12-06] MEDS: KLOR-CON 20 MEQ PO (08:25)
--- NOTE | 2024-12-06 10:24 | CM ---
Patient seen at bedside with
cont on oxygen - CM to watch for needs
tt hospitalist for PT order
PLAN: home, Await PT eval, watch for oxygen needs
[2024-12-06 15:00] VITALS: BP 121/74
[2024-12-06 15:50] VITALS: BP 114/74; PULSE 95; O2SAT 88
[2024-12-06] MEDS: LOVENOX 40 MG SC (18:07)
[2024-12-06] MEDS: REMOVE NICOTINE PATCH 1 PATCH REMOVE (21:12)
--- NOTE | 2024-12-06 22:06 | W.PN.UPDATE ---
Update Note
Progress Note Update
pt getting increasingly agitated walking the halls stating he wanted to leave- with pt as he has a hx of dementia- to help redirect him. He is still requiring 2L NC for maintain a SPO2 of 94% and is LEWIS. The patient's getting flustered
with calming the patient mentioned wanting to leave AMA- On the floor to speak with pt and - they are ok with trying medications to sleep & calm the patient for the evening. Note indicates he could possibly be d/c'd tomorrow- discussed this as
well. Melatonin and Ativan ordered.�
[2024-12-06] MEDS: ATIVAN 0.25 MG PO (22:24)
[2024-12-06 23:15] VITALS: BP 124/70
--- NOTE | 2024-12-07 02:37 | PTCARENOTE ---
early in the evening pt started being agitated walking down the shook with a bag wanting to go home, was very frustrated and asked if he could be going home today given his agitation and constant asking to leave. Patient hard to redirect in the
room, he was SOB on exertion, requiring Oxygen but refusing to wear while walking. with talking to him and staff redirecting he finally agreed to go back in the room, oxygen applied and kept on while asleep. SCHOOL CROSSING GUARD Lilibeth Roper made aware and came
to evaluate patient.
--- NOTE | 2024-12-07 04:46 | DOWNTIME ---
There was a [employer] Engine Lathe Set Up Operator Downtime on 12/07/2024 from 0100 to 12/07/2024 at 0220. Downtime documentation of patient's care, including medication administrations, has been reconciled in the electronic record per guidelines. Refer to the
patient's paper chart under the miscellaneous tab to see printed paper medication records and downtime forms.
[2024-12-07 05:22] VITALS: BMI 27.3
[2024-12-07] MEDS: STERILE WATER FOR INJECTION 10 ML IV (06:14)
[2024-12-07] MEDS: MAXIPIME 2000 MG IV (06:14)
[2024-12-07 07:00] VITALS: BP 122/78
[2024-12-07] MEDS: DUONEB 3 ML INH (07:50)
[2024-12-07 07:53] LABS: Hematocrit 39.3 % (39.0-52.0); Hemoglobin 13.1 g/dL (13.0-18.0); Mean Corp Hgb Conc. 33.3 g/dL (33.0-37.0); Mean Corpuscular Volume 91.8 fL (80.0-94.0); Platelet Count 142 10^3/uL (130-400); Red Cell Dist. Width 13.7 % (11.5-14.5)
[2024-12-07 08:09] LABS: Blood Urea Nitrogen 20 mg/dl (9-20); Calcium 8.6 mg/dl (8.4-10.2); Carbon Dioxide 28 mmol/L (22-30); Chloride 105 mmol/L (98-107); Estimated Creatinine Clearance 110 ml/min; Glucose 89 mg/dl (70-99); Potassium 3.7 mmol/L (3.5-5.1); Sodium 137 mmol/L (135-145); eGFR > 60.00
[2024-12-07] MEDS: NICODERM TRANSDERMAL 14 MG TRANSDERM (08:26)
[2024-12-07] MEDS: DELTASONE 40 MG PO (08:26)
[2024-12-07 08:35] VITALS: O2SAT 93; O2SAT 95
[2024-12-07 11:00] VITALS: BP 120/72
--- NOTE | 2024-12-07 11:24 | W.PN.HOSP.TC ---
Today's Communication/Plan
-
Discharge home today
Assessment / Plan
Assessment / Plan
Impression:
Patient is a 74-year-old Kazakh speaking male with a medical history of dementia, COPD with emphysema (not on home oxygen) and is a current smoker who presented with productive cough, shortness of breath, and fevers. He left yesterday AGAINST
MEDICAL ADVICE and returned soon after for reevaluation on admission. He has a leukocytosis and remains intermittently febrile. He has been borderline hypotensive since presentation. Chest x-ray shows bilateral pneumonia. He has been started on
antibiotics with cefepime, IV fluids, and prednisone. He is requiring 3 L of supplemental oxygen. He has been admitted for further evaluation and management of sepsis secondary to pulmonary infection with COPD exacerbation.
Overall status post improved, patient passed ambulatory pulse ox.
Will be discharged home on prednisone tapering, Ceftin.
Will be discharged on nebulizer, follow-up with pulmonology.
Will be discharged on nicotine patches.
Outpatient physical therapy.
Assessment/plan:
Severe sepsis with acute organ dysfunction secondary to pneumonia:
Acute organ dysfunction in form of acute respiratory failure
- Chest x-ray on admission shows:
1. Large amount of ground-glass opacity in the basilar segments of the lower lobes of both lungs, right middle lobe, and lingula which has markedly increased since 04/28/2024. Diagnostic possibilities are (1) acute bilateral infectious pneumonia
or (2) progressive combined emphysema and interstitial pulmonary fibrosis.
2. Mild to moderate bilateral upper lobe centrilobular emphysema
Given a dose of vancomycin and cefepime in the ED, continue antibiotics with cefepime, negative MRSA swab
Negative both Streptococcus pneumoniae antigen and Legionella antigen
Negative blood culture
Negative influenza and COVID
09/07
Improved.
Will be discharged home.
Acute respiratory failure secondary to pneumonia.
Continue oxygen with weaning protocol.
Consider sending home with oxygen.
09/07
passed Pulse ox on exertion
Will be discharged home.
COPD with acute exacerbation:
- With acute hypoxic respiratory failure, not on home oxygen, desaturated to the low 80s on room air, saturating appropriately on 3 L, titrate as able and assess for home oxygen needs prior to discharge
- Continue scheduled nebulizers with additional as needed
- Has been on 40 mg p.o. daily
- Encourage smoking cessation, nicotine patch provided.
Currently smoker
Continue nicotine patches.
Hypokalemia.
Will replace and continue to monitor.
CODE STATUS: Full code
DVT prophylaxis: Lovenox
Diet: Regular diet
Family communication: Discussed with at bedside.
Total time spent on today's encounter was 65 minutes which included time spent in counseling the patient/family regarding diagnosis and treatment plan as listed above, goals of care, and symptom management. Case was discussed with nursing staff,
specialists, and care coordinators/case management. All labs and imaging personally reviewed by me. Remainder the time spent in detailed review of previous records, lab data, imaging, and other medical provider documentation.
Anticipated Discharge: Today
Subjective/Interval History
-
Date of Service: December 07, 2024
Patient seen and examined at bedside, denies any chest pain or shortness of breath, no abdominal pain, no nausea, no vomiting, no diarrhea or constipation.
Objective Data
-
Labs:
Laboratory Results
12/07/24
06:58
WBC 10.2
Hgb 13.1
Hct 39.3
Plt Count 142
Sodium 137
Potassium 3.7
Chloride 105
Carbon Dioxide 28
BUN 20
Creatinine 0.6 L
Glucose 89
Calcium 8.6
Vital Signs:
Vital Signs
Temp Pulse Resp BP Pulse Ox
98.1 F 78 16 122/78 93
12/07/24 07:00 12/07/24 07:53 12/07/24 07:53 12/07/24 07:00 12/07/24 08:35
I&O
12/06/24 12/07/24 12/08/24
06:59 06:59 06:59
Intake Total 980 / 980 720 / 720
Balance 980 / 980 720 / 720
Physical Exam
-
General: Well Developed, Well Nourished, No Apparent Distress and Comfortable
HEENT: Normocephalic, Atraumatic, Moist Mucous Membranes, No Ptosis, PERRLA and Nose Appears Normal
Respiratory: Rales, Rhonchi and Crackles
Cardiac: Regular Rhythm and S1/S2
Breast: Deferred by me
GI: Soft, Nontender, Nondistended and Normal Bowel Sounds
Genito-urinary: No Costovertebral Tender
Musculoskeletal: No Clubbing, No Cyanosis and No Edema
Skin: Warm
Neuro: Awake, Alert, Oriented, AO x 3 and No Motor Deficits
Psych: Calm
Data Reviewed
-
Diagnostic Radiology: Image personally visualized and interpreted and Report Reviewed by me
CT Scan: Image personally visualized and interpreted and Report Reviewed by me
Ultrasound: Image personally visualized and interpreted and Report Reviewed by me
MRI: Image personally visualized and interpreted and Report Reviewed by me
Medical Tests (Nuc Med, Echo etc): Image personally visualized and interpreted and Report Reviewed by me
Labs: Labs Reviewed by me
Old Records: Reviewed
--- NOTE | 2024-12-07 11:27 | W.DCSUMMARY ---
Discharge Summary
Discharge Data
Date of Admission: 12/04/24
Date of Discharge: 12/07/24
-
Pending Results: No
Hospital Course
Hospital course
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 He left yesterday AGAINST
MEDICAL ADVICE and returned soon after for reevaluation on admission. He has a leukocytosis and remains intermittently febrile. He has been borderline hypotensive since presentation. Chest x-ray shows bilateral pneumonia. He has been started on
antibiotics with cefepime, IV fluids, and prednisone. He is requiring 3 L of supplemental oxygen. He has been admitted for further evaluation and management of sepsis secondary to pulmonary infection with COPD exacerbation.
Overall status post improved, patient passed ambulatory pulse ox.
Will be discharged home on prednisone tapering, Ceftin.
Will be discharged on nebulizer, follow-up with pulmonology.
Will be discharged on nicotine patches.
Outpatient physical therapy.
During hospitalization patient was treated from the following
Severe sepsis with acute organ dysfunction secondary to pneumonia:
Acute organ dysfunction in form of acute respiratory failure
- Chest x-ray on admission shows:
1. Large amount of ground-glass opacity in the basilar segments of the lower lobes of both lungs, right middle lobe, and lingula which has markedly increased since 04/28/2024. Diagnostic possibilities are (1) acute bilateral infectious pneumonia
or (2) progressive combined emphysema and interstitial pulmonary fibrosis.
2. Mild to moderate bilateral upper lobe centrilobular emphysema
Given a dose of vancomycin and cefepime in the ED, continue antibiotics with cefepime, negative MRSA swab
Negative both Streptococcus pneumoniae antigen and Legionella antigen
Negative blood culture
Negative influenza and COVID
09/07
Improved.
Will be discharged home.
Acute respiratory failure secondary to pneumonia.
Continue oxygen with weaning protocol.
Consider sending home with oxygen.
09/07
passed Pulse ox on exertion
Will be discharged home.
COPD with acute exacerbation:
- With acute hypoxic respiratory failure, not on home oxygen, desaturated to the low 80s on room air, saturating appropriately on 3 L, titrate as able and assess for home oxygen needs prior to discharge
- Continue scheduled nebulizers with additional as needed
- Has been on 40 mg p.o. daily
- Encourage smoking cessation, nicotine patch provided.
Currently smoker
Continue nicotine patches.
Hypokalemia.
Will replace and continue to monitor.
CODE STATUS: Full code
DVT prophylaxis: Lovenox
Diet: Regular diet
Family communication: Discussed with at bedside.
Total time spent on today's encounter was 40 minutes which included time spent in counseling the patient/family regarding diagnosis and treatment plan as listed above, goals of care, and symptom management. Case was discussed with nursing staff,
specialists, and care coordinators/case management. All labs and imaging personally reviewed by me. Remainder the time spent in detailed review of previous records, lab data, imaging, and other medical provider documentation.
Anticipated Discharge: Today
Discharge Plan
-
Patient Disposition: Home (Routine Discharge)
Discharge Diagnosis/Procedures: Severe sepsis with acute organ dysfunction secondary to pneumonia:
Acute respiratory failure
COPD with acute exacerbation:
Diet: As tolerated
Activity: As tolerated
Instructions: Quitting smoking for adults, Exacerbation of COPD (DC)
Referrals:
Anni Ring, [Active, Pulmonary Medicine] - in one to two weeks
Jg Hollis MD [Family Provider, [facility]]
Prescriptions:
New
(DME) outpatient physical therapy
See Rx Instructions .Route .MEDSUPPLY Qty: 1 0RF
Rx Instructions:
3 times weekly
Diagnosis: Ambulatory Dysfunction.
prednisone 20 mg Tablet
10 mg PO DIRECTED Qty: 30 0RF
Rx Instructions:
take 40 mg for 3 days then 30 mg for 3 days then 20 mg for 3 days then 10 mg for 3 days then stop.
ipratropium-albuterol 0.5 mg-3 mg(2.5 mg base)/3 mL Solution For Nebulization
3 ml inhalation R Q4HPRN PRN (Reason: wheeze) Qty: 180 0RF
nicotine 14 mg/24 hr Patch 24 Hour
14 mg transdermal DAILY Qty: 28 0RF
(DME) nebulizer and compressor Device
See Rx Instructions .Route Qty: 1 0RF
Rx Instructions:
As directed
cefuroxime axetil 500 mg tablet
500 mg PO BID 10 Days Qty: 20 0RF
Continued
albuterol sulfate [Ventolin HFA] 1 PUFF HFA aerosol inhaler
2 puff inhalation R Q4HPRN PRN (Reason: WHEEZING) Qty: 8.5 0RF
Discharge Orders:
Discharge Patient (As Directed); Ordered 12/07/24
Ordered By: Dewayne Marion
Discharge Date and Time
Print Language: FAROESE
--- NOTE | 2024-12-07 12:03 | CM ---
Patient seen at bedside with patient on . Patient for discharge home with outpatient script for PT/OT follow up. Patient completed iMM and signed form placed on chart. Patient eager for discharge home today. CM will continue to follow
for discharge planning needs.
Plan; home with outpatient pt/ot follow up
== END 2024-12-07 12:01 | disposition home or self-care (01) | DRG 871 ==
LOC: 2 NORTH 22:59
PROVIDERS: Internal Medicine; ADMITTING PHYSICIAN Internal Medicine; ATTENDING PHYSICIAN General Practice; EMERGENCY PHYSICIAN Emergency Medicine; FAMILY PHYSICIAN Family Medicine
DX: A41.9 Sepsis, unspecified organism (principal); J18.9 Pneumonia, unspecified organism; J96.01 Acute respiratory failure with hypoxia; F17.210 Nicotine dependence, cigarettes, uncomplicated; F03.90 Unspecified dementia, unspecified severity, without behavioral disturbance, psychotic disturbance, mood disturbance, and anxiety; J84.10 Pulmonary fibrosis, unspecified; I95.9 Hypotension, unspecified; R65.20 Severe sepsis without septic shock; J43.2 Centrilobular emphysema; E87.6 Hypokalemia; Z90.49 Acquired absence of other specified parts of digestive tract
CPT/HCPCS: 71046; 80048; 80053; 81003; 81015; 82805; 83605; 83880; 84484; 85025; 85027; 87040; 87070; 87205; 87449; 87502; 87811; 87899; 93005; 94640; 97162; 97530; 99291

== ENCOUNTER → 2025-01-07 13:13 | Outpatient (REF) | payer OTHER, SELFPAY | LOC: HWRAD 13:13 | PROVIDERS: ATTENDING PHYSICIAN Internal Medicine Critical Care Medicine; FAMILY PHYSICIAN Family Medicine | DX: J18.9 Pneumonia, unspecified organism (principal); J84.9 Interstitial pulmonary disease, unspecified | CPT/HCPCS: 71250 ==

== ENCOUNTER → 2025-02-09 07:54 | Outpatient (REF) | payer OTHER, SELFPAY ==
[2025-02-09 07:49] LABS: Glucose 104 mg/dl (70-99)
== END ==
LOC: PET 07:54
PROVIDERS: ATTENDING PHYSICIAN Internal Medicine Critical Care Medicine
DX: Z01.812 Encounter for preprocedural laboratory examination (principal); R91.1 Solitary pulmonary nodule
CPT/HCPCS: 36415; 78815; 82947; A9552

== ENCOUNTER → 2025-02-24 09:09 | Outpatient (REF) | payer OTHER, SELFPAY | LOC: HWRCS 09:09 | PROVIDERS: ATTENDING PHYSICIAN Internal Medicine Critical Care Medicine; FAMILY PHYSICIAN Family Medicine | DX: R06.09 Other forms of dyspnea (principal) | CPT/HCPCS: 93306 ==

== ENCOUNTER 2025-03-07 06:10 | Day surgery (SDC) | payer OTHER, SELFPAY ==
[2025-03-07] VITALS (8 sets, daily range): BP systolic 98–140; BP diastolic 54–92; BMI 25.8
== END 2025-03-07 17:56 | disposition home or self-care (01) ==
LOC: SDS 06:10
PROVIDERS: ATTENDING PHYSICIAN Internal Medicine Critical Care Medicine
DX: R91.1 Solitary pulmonary nodule (principal); R59.0 Localized enlarged lymph nodes; C96.9 Malignant neoplasm of lymphoid, hematopoietic and related tissue, unspecified; R84.6 Abnormal cytological findings in specimens from respiratory organs and thorax; J98.4 Other disorders of lung
CPT/HCPCS: 31624; 31654; 71045; 81459; 87015; 87070; 87102; 87116; 87205; 88112; 88173; 88305; 88341; 88342

== ENCOUNTER → 2025-04-07 08:17 | Outpatient (REF) | payer OTHER, SELFPAY ==
[2025-04-07 09:05] VITALS: BP 121/75; BP_SYST 81
[2025-04-07] MEDS: ANCEF 10 IV (09:23)
[2025-04-07 10:32] VITALS: BP 125/85; BP_SYST 89
== END ==
LOC: RADI 08:17
PROVIDERS: ATTENDING PHYSICIAN Internal Medicine Hematology & Oncology; FAMILY PHYSICIAN Family Medicine
DX: C34.11 Malignant neoplasm of upper lobe, right bronchus or lung (principal)
CPT/HCPCS: 36561; 76937; 77001; 99152; 99153; C1788

== ENCOUNTER → 2025-05-16 10:26 | Outpatient (REF) | payer OTHER, SELFPAY | LOC: RST 10:26 | PROVIDERS: ATTENDING PHYSICIAN Radiology Radiation Oncology; FAMILY PHYSICIAN Family Medicine | DX: C34.11 Malignant neoplasm of upper lobe, right bronchus or lung (principal); R13.10 Dysphagia, unspecified | CPT/HCPCS: 74230; 92611 ==

== ENCOUNTER → 2025-05-18 09:24 | Outpatient (REF) | payer OTHER, SELFPAY ==
[2025-05-18 10:29] LABS: Hematocrit 41.0 % (39.0-52.0); Hemoglobin 13.5 g/dL (13.0-18.0); Mean Corp Hgb Conc. 32.9 g/dL (33.0-37.0); Mean Corpuscular Volume 91.1 fL (80.0-94.0); Nucleated Red Blood Cells % 0 % (-); Platelet Count 219 10^3/uL (130-400); Red Cell Dist. Width 14.2 % (11.5-14.5)
[2025-05-18 11:21] LABS: ALT (SGPT) 24 U/L (0-50); AST (SGOT) 22 U/L (17-59); Albumin 4.1 g/dl (3.5-5.0); Alkaline Phosphatase 84 U/L (38-126); Blood Urea Nitrogen 17 mg/dl (9-20); Calcium 9.3 mg/dl (8.4-10.2); Carbon Dioxide 28 mmol/L (22-30); Chloride 102 mmol/L (98-107); Glucose 96 mg/dl (70-99); Potassium 4.4 mmol/L (3.5-5.1); Sodium 136 mmol/L (135-145); Total Protein 7.2 g/dl (6.3-8.2); eGFR > 60.00
== END ==
LOC: REG 09:24
PROVIDERS: ATTENDING PHYSICIAN Internal Medicine Hematology & Oncology; FAMILY PHYSICIAN Family Medicine
DX: C34.11 Malignant neoplasm of upper lobe, right bronchus or lung (principal)
CPT/HCPCS: 36415; 80053; 85025